=== PATIENT | female | born 1960 | race Native Hawaiian/Other Pacific Islander ===

== ENCOUNTER 2016-08-26 23:45 | Inpatient (IN) | payer OTHER ==
[~2016-08-26] VITALS: Ht 167.6 cm; Wt 127.0 kg
[2016-08-27] VITALS (79 sets, daily range): BP systolic 15–122; BP diastolic 26–81; TEMP 96.2–100; Ht 167.6 cm; Wt 127.0 kg
[2016-08-27 00:40] LABS: PLATELET COUNT 260 K/uL (152-353)
[2016-08-27] MEDS ORDERED: HYDR25TA60 PO ×2 (02:22→12:21)
[2016-08-27] MEDS ORDERED: LISI20TA11 PO (02:23)
[2016-08-27] MEDS ORDERED: LYRICA200 MG PO (02:23)
[2016-08-27] MEDS ORDERED: PRAVACHOL20 MG PO ×2 (02:24→12:26)
[2016-08-27] MEDS ORDERED: LANSOPRAZOLE30 MG PO (02:25)
[2016-08-27] MEDS ORDERED: PROMETHAZINE HC50 MG PO (02:25)
[2016-08-27] MEDS ORDERED: DULOXETINE HCL60 MG PO (02:26)
[2016-08-27] MEDS ORDERED: METF100038 PO (02:27)
[2016-08-27] MEDS ORDERED: ALEN70TA19 PO (02:28)
[2016-08-27] MEDS ORDERED: OMEGA 31000 MG PO (02:29)
[2016-08-27] MEDS ORDERED: INSUINJP SC (02:47)
[2016-08-27 06:29] LABS: PLATELET COUNT 245 K/uL (152-353)
[2016-08-27 06:53] LABS: POTASSIUM 5.7 mmol/L (3.6-5.2)
--- NOTE | 2016-08-27 07:00 | NUR ---
REPORT FROM PM STAFF.PT RESTING IN LOW FOWLERS WITH EYES CLOSED. MUMBLES WHEN TOUCHED OR NAME IS CALLED.
--- NOTE | 2016-08-27 08:03 | NUR ---
08/27/16 AT 0335PT'S CLOSE FRIEND ANTHONY IS AT BEDSIDE, SOME MEDICAL HISTORY RECEIVED FROM IRIS. PT'S CELL PHONE, WALLET, GOWN, COUCH COVER, AND HEATING PAD GIVEN TO ANTHONY TO TAKE BACK TO PT'S HOUSE. ANTHONY IS THE FRIEND THAT CALLED EMS TO PT'S HOUSE PRIOR TO ARRIVING IN ER.
--- NOTE | 2016-08-27 10:05 | NUR ---
PT'S FRIEND IN TO SEE HER. PT ASLEEO BUT WAKES UP & TALKS WITH FRIEND. ORIENTED TO FRIEND. MORE ALERT & ORIENTED AFTER TALKING FOR A FEW MINUTES.
--- NOTE | 2016-08-27 10:25 | NUR ---
LABS DRAWN WITHOUT DIFFICULTY & TO LAB. ABG RESULTS TO DR MYERS PER SANDHYA CASTAÑEDA LIQUOR DEPARTMENT MANAGER.
--- NOTE | 2016-08-27 12:05 | NUR ---
ATTEMPTED TO DECREASE DOPAMINE DRIP,DECREASED TO 8MCG/KG/MIN.
--- NOTE | 2016-08-27 12:15 | NUR ---
BP DOWN TO 83/60.DOPAMINE DRIP INCREASED TO 10MCG/KG/MIN.
[2016-08-27] MEDS ORDERED: DIAZEPAM10 M2 PO (12:18)
[2016-08-27] MEDS ORDERED: DEXL60CA4 PO (12:29)
--- NOTE | 2016-08-27 12:30 | NUR ---
BP UP TO 101/91.
[2016-08-27] MEDS ORDERED: PERCOCET1 TA3 PO (12:31)
[2016-08-27] MEDS ORDERED: FENT75DI TD (12:32)
[2016-08-27] MEDS ORDERED: NOVOLIN R U-1001 ML IJ (12:40)
--- NOTE | 2016-08-27 12:55 | NUR ---
DR MYERS IN TO SEE PT. CHECKING PT'S L FT WOUND. L FOOT ELEVATED ON PILLOWS.
--- NOTE | 2016-08-27 14:08 | NUR ---
PT C/O BACK PAIN,"10 ON A PAIN SCALE'. MEDICATED WITH MORPHINE 2 MG SIVP.
--- NOTE | 2016-08-27 15:30 | NUR ---
PT AWAKE & C/O 'I NEED TO PEE'. EXPLAINED TO PT THAT SHE HAD A CATHETER& IT WAS DRAINING HER BLADDER.
--- NOTE | 2016-08-27 16:30 | NUR ---
AJ FROM LAB IN TO DRAW BLOOD CULTURES.
--- NOTE | 2016-08-27 16:36 | NUR ---
PT C/O 'I NEED TO PEE',EXPLAINED TO PT THAT SHE HAD A CATHETER & SHOWED HER URINE IN BAG & TUBING. EXPLAINED TO HER THAT WE NEEDED TO KEEP ACCURATE I&O ON HER & THAT A CATHETER WOULD SOMETIMES MAKE YOU FEEL LIKE THAT YOU HAD TO GO. REPORTED TO SEUN ROSA RN/JEREMY MYERS.
--- NOTE | 2016-08-27 17:42 | NUR ---
PT CALLING OUT LOUDLY FOR HELP. CALLIGHT AGAIN EXPLAINED TO PT PER PASQUALE LEE RN. PT ASSISTED TO SIT ON SIDE OF BED. PT SITTING UP FEEDING SELF SUPPER.
--- NOTE | 2016-08-27 18:34 | NUR ---
L G TOE SITE CLEANED WITH NS,NEOSPORIN APPLIED,COVERED WITH 4X4S& ZIA.PT ASSITED BACK TO BED.
--- NOTE | 2016-08-27 18:36 | NUR ---
DR MYERS NOTIFIED OF BS& IV FLUIDS D10 AT 83ML/HR.IV FLUIDS CHANGED TO NS AT 125 ML/HR.
--- NOTE | 2016-08-27 20:04 | NUR ---
OTBS 292 AT THIS TIME. NO COVERAGE GIVEN DUE TO PT'S PREVIOUS CRITICALLY LOW BLOOD SUGARS. WILL CONTINUE TO MONITOR.
[2016-08-28] VITALS (63 sets, daily range): BP systolic 24–165; BP diastolic 26–105; TEMP 97.7–100.1
--- NOTE | 2016-08-28 05:08 | NUR ---
DOPAMINE DRIP TITRATED DOWN TO 5 MCG/KG/MIN AT THIS TIME.
--- NOTE | 2016-08-28 06:15 | NUR ---
UNABLE TO DRAW LABS AT THIS TIME. LAB NOTIFIED.
--- NOTE | 2016-08-28 06:25 | NUR ---
LAB AT BEDSIDE ATTEMPTING LAB DRAW.
--- NOTE | 2016-08-28 07:00 | NUR ---
REPORT FROM PM STAFF. PT RESTING IN LOW FOWLERS,EYES CLOSED, NO C/O PAIN AT THIS TIME.
--- NOTE | 2016-08-28 08:45 | NUR ---
PT FED HERSELF 75% 0F MEAL. ASSISTED TO REPOSITION SELF.DOPAMINE DRIP DECREASED TO 4MCG/KG/MIN.
--- NOTE | 2016-08-28 10:15 | NUR ---
DR ESPITIA INTO SEE PT. LABS REPORTED. NEW ORDERS.
--- NOTE | 2016-08-28 10:20 | NUR ---
PT ASSISTED UP TO BSC,NO BM,LINEN CHANGE & BATH, ASSISTED BACK TO BED. GAIT VERY SLOW & UNSTEADY WITH MUCH FEAR OF FALLING.LAB HERE TO ATTEMPT BLOOD DRAW AGAIN.
[2016-08-28 10:24] LABS: PLATELET COUNT 127 K/uL (152-353)
--- NOTE | 2016-08-28 10:24 | NUR ---
PT C/O NAUSEA,RQUESTED 'MY PHENERGAN'. MEDICATED PER DR'S ORDER.
[2016-08-28 10:45] LABS: POTASSIUM 6.8 mmol/L (3.6-5.2)
--- NOTE | 2016-08-28 12:00 | NUR ---
PT TO CT VIA BED PER RAD STAFF,ESCORTED PER BIB HERNANDEZ RN.
--- NOTE | 2016-08-28 12:20 | NUR ---
PT FROM CT VIA BED STABLE. DOPAMINE DRIP DECREASED TO 2.5 MCG/KG/MIN.
--- NOTE | 2016-08-28 13:33 | NUR ---
PT ASSISTED TO LAY BACK DOWN IN BED. FAMILY ATBS.
--- NOTE | 2016-08-28 14:30 | NUR ---
DOPAMINE DRIP STOPPED. PT RESTING.
--- NOTE | 2016-08-28 15:16 | NUR ---
PT RESTING ON R SIDE WITH HOB UP. NO C/O.
--- NOTE | 2016-08-28 17:45 | NUR ---
PT SITTING UP ON SIDE OF BED FEEDING SELF SUPPER.
--- NOTE | 2016-08-28 20:00 | NUR ---
PATIENT IS RESTING IN SEMIFOWLERS POSITION AT THIS TIME. PATIENT DOES C/O PAIN TO HER LOWER BACK, RATES PAIN 10 ON PAIN SCALE 0-10, DESCRIBES PAIN CHRONIC INTERMITTENT PAIN THAT IS SHARP AND ACHING. PATIENT IS AOX3. SHIFT ASSESSMENT COMPLETED AT THIS TIME. IV NOTED TO THE 22G TO THE LEFT FOREARM INFUSING NS AT 125 ML/HR WITH NO S/S OF INFILTRATION NOTED. FALL PRECAUTIONS IN PLACE PER PROTOCOL. WILL CONTINUE TO MONITOR NEEDED.
--- NOTE | 2016-08-28 20:30 | NUR ---
PATIENT ASSISTED TO THE BEDSIDE COMMODE. MODERATE ASSISTANCE NEEDED. PATIENT HAD A VERY LARGE FORMED BOWEL MOVEMENT. PATIENT ASSISTED BACK TO BED. PATIENT HAS DIFFICULTY WITH REPOSITIONING IN BED. WILL CONTINUE TO MONITOR NEEDED.
--- NOTE | 2016-08-28 21:39 | NUR ---
PATIENT COMPLAINS OF PAIN AT THIS TIME. RATES PAIN 10 ON PAIN SCALE 0-10. STATES PAIN IS CHRONIC AND INTERMITTENT, DESCRIBES PAIN SHARP. PRN MEDICATION GIVEN AT THIS TIME ORDERED. WILL REASSESS FOR PAIN RELIEF.
--- NOTE | 2016-08-28 22:39 | NUR ---
PATIENT IS RESTING IN BED STATES PAIN IS STILL PRESENT MEDICATION HELPS FOR A LITTLE AND THEN PAIN RETURNS. COMFORT MEASURES PROVIDED AT THIS TIME.
[2016-08-29] VITALS (9 sets, daily range): BP systolic 100–142; BP diastolic 38–66; TEMP 98.2–99.5
--- NOTE | 2016-08-29 01:15 | NUR ---
CALLED ER DR.LU HOUSER AND EXPLAINED TO HIM PATIENT IS CRYING AND IS ANXIOUS. DIAZEPAM 10 MG X1 GIVEN PO ORDERED. WILL REASSESS FOR DECREASED RESTLESSNESS.
--- NOTE | 2016-08-29 02:00 | NUR ---
POST MEDICATION DIAZEPAM- PATIENT IS RESTING WITH EYES CLOSED AT THIS TIME.
--- NOTE | 2016-08-29 03:15 | NUR ---
PATIENT COMPLAINS OF PAIN RATES PAIN 10 ON PAIN SCALE 0-10. DESCRIBES PAIN INTOLERABLE AND SHARP IN HER BACK, PAIN IS INTERMITTENT. PRN MEDICATION GIVEN AT THIS TIME.
--- NOTE | 2016-08-29 06:29 | NUR ---
DRESSING TO LEFT FOOT NOT INTACT. WOUND CLEANSED WITH NS AND ANTIBIOTIC CREAM APPLIED. 4X4 DRESSING PLACED AND SECURED WITH TAPE.
--- NOTE | 2016-08-29 07:30 | NUR ---
AM ASSESSMENT DONE.
[2016-08-29 07:42] LABS: PLATELET COUNT 175 K/uL (152-353)
[2016-08-29 08:07] LABS: POTASSIUM 4.5 mmol/L (3.6-5.2); SODIUM 139 mmol/L (136-145)
--- NOTE | 2016-08-29 09:14 | NUR ---
PT SITTING ON SIDE OF BED EATING BREAKFAST.
--- NOTE | 2016-08-29 10:11 | NUR ---
PT C/O OF SHARP PAINS IN HER BLADDER. DR. ESPITIA NOTIFIED.
--- NOTE | 2016-08-29 10:30 | NUR ---
NOLASCO D/C'D WITH TIP INTACT. 2000ML URINE OUTPUT. PT NAHUN WELL. PT UP TO BSC. PT VOIDED 100ML OF URINE.
--- NOTE | 2016-08-29 12:00 | NUR ---
PT RESTING QUIETLY WITH EYES CLOSED. WILL CONTINUE TO MONITOR.
--- NOTE | 2016-08-29 13:28 | NUR ---
PT UP TO BSC. VOIDED 400ML.
--- NOTE | 2016-08-29 14:04 | NUR ---
DR. ESPITIA HERE TO SEE PT.
--- NOTE | 2016-08-29 16:17 | NUR ---
RECEIVED ORDER TO TRANSFER PT TO MED SURG. PT WILL GO TO ROOM 1109.
--- NOTE | 2016-08-29 16:54 | NUR ---
PT UP TO BSC.
--- NOTE | 2016-08-29 17:52 | NUR ---
PT TRANSFERRED TO ROOM 1109 VIA WC IN STABLE COND. ORIENTED PT TO ROOM SURROUNDINGS.
--- NOTE | 2016-08-29 18:01 | NUR ---
1801 PT TRANSFERED FROM PCU TO ROOM 1109 VIA BED. FAMILY WITH PT. PT ALERT AND ORIENTED. NO DISTRESS NOTED. [facility]
--- NOTE | 2016-08-29 18:03 | NUR ---
GAVE REPORT TO CHI HERNANDEZ RN.
[2016-08-30] VITALS: BP 150/66; TEMP 99.8
[2016-08-30 04:00] VITALS: BP 125/55; TEMP 98.9
[2016-08-30 05:29] LABS: PLATELET COUNT 198 K/uL (152-353)
[2016-08-30 05:45] LABS: POTASSIUM 4.2 mmol/L (3.6-5.2); SODIUM 140 mmol/L (136-145)
[2016-08-30 08:00] VITALS: BP 124/62; TEMP 97.8
[2016-08-30 12:00] VITALS: BP 121/57; TEMP 98.4
--- NOTE | 2016-08-30 15:58 | NUR ---
1600 PT LEFT VIA WC WITH FAMILY. NO DISTRESS NOTED HOME MEDS RETURNED WITH PT ON TIME OF DISCHARGE
== END 2016-08-30 15:56 | disposition home or self-care (01) | DRG 638 ==
LOC: ED 23:45 → ICU 08-27 02:15 → MED/SURG 08-29 17:50
DX: E11.649 Type 2 diabetes mellitus with hypoglycemia without coma (principal); E87.2 Acidosis; Z79.4 Long term (current) use of insulin; I95.89 Other hypotension; F41.8 Other specified anxiety disorders; K21.9 Gastro-esophageal reflux disease without esophagitis; E11.42 Type 2 diabetes mellitus with diabetic polyneuropathy; I12.9 Hypertensive chronic kidney disease with stage 1 through stage 4 chronic kidney disease, or unspecified chronic kidney disease; N18.3 Chronic kidney disease, stage 3 (moderate); M79.7 Fibromyalgia; J44.9 Chronic obstructive pulmonary disease, unspecified; M32.8 Other forms of systemic lupus erythematosus; Z85.810 Personal history of malignant neoplasm of tongue; E11.621 Type 2 diabetes mellitus with foot ulcer; L97.529 Non-pressure chronic ulcer of other part of left foot with unspecified severity
CPT/HCPCS: 36415; 36600; 51702; 80053; 80307; 80320; 80329; 81000; 82140; 82805; 82947; 82948; 82962; 83036; 83735; 85027; 96360; 96361; 96365; 96366; 96372; 96374; 96375; 99285; G0479; J1265; J2270; J3475; J3490; J7060

== ENCOUNTER 2016-09-29 10:13 | Outpatient (CLI) | payer OTHER ==
[~2016-09-29 10:13] MED LIST: ALEN70TA19 PO; DEXL60CA4 PO; DIAZEPAM10 M2 PO; DULOXETINE HCL60 MG PO; FENT75DI TD; HYDR25TA60 PO; INSUINJP SC; LANSOPRAZOLE30 MG PO; LISI20TA11 PO; LYRICA200 MG PO; METF100038 PO; NOVOLIN R U-1001 ML IJ; OMEGA 31000 MG PO; PERCOCET1 TA3 PO; PRAVACHOL20 MG PO; PROMETHAZINE HC50 MG PO
[2016-09-29 10:49] LABS: PLATELET COUNT 204 K/uL (152-353)
[2016-09-29 11:49] LABS: POTASSIUM 4.6 mmol/L (3.6-5.2); SODIUM 135 mmol/L (136-145)
== END 2016-09-29 11:15 | disposition home or self-care (01) ==
LOC: LABW 10:13
PROVIDERS: Internal Medicine
DX: E11.9 Type 2 diabetes mellitus without complications (principal); I10 Essential (primary) hypertension; M81.8 Other osteoporosis without current pathological fracture
CPT/HCPCS: 36415; 80053; 80061; 81000; 82043; 82306; 82570; 83036; 84443; 85027; 85651; 86039

== ENCOUNTER 2016-11-01 16:59 | Outpatient (CLI) | payer OTHER ==
[2016-11-01] MEDS ORDERED: PREVACID30 M1 OR (18:18)
[2016-11-01] MEDS ORDERED: TRAZ50TA36 PO (18:20)
== END 2016-11-01 17:05 | disposition short-term general hospital (02) ==
LOC: AMB 16:59
DX: R41.82 Altered mental status, unspecified (principal); R56.9 Unspecified convulsions
CPT/HCPCS: A0425; A0427

== ENCOUNTER 2016-11-01 17:05 | Emergency (ER) | payer OTHER ==
[~2016-11-01] VITALS: Ht 167.6 cm; Wt 114.8 kg
[2016-11-01 17:37] LABS: PLATELET COUNT 328 K/uL (152-353)
[2016-11-01 17:40] LABS: POTASSIUM 3.7 mmol/L (3.6-5.2); SODIUM 135 mmol/L (136-145)
[2016-11-01] MEDS ORDERED: PREVACID30 M1 OR (18:18)
[2016-11-01] MEDS ORDERED: TRAZ50TA36 PO (18:20)
[2016-11-01 19:13] VITALS: TEMP 98.1
[2016-11-01 19:43] VITALS: BP 133/69
== END 2016-11-01 20:44 | disposition short-term general hospital (02) ==
LOC: ED 17:05
PROVIDERS: Family Medicine
DX: R56.9 Unspecified convulsions (principal); N39.0 Urinary tract infection, site not specified; A41.9 Sepsis, unspecified organism; I51.7 Cardiomegaly; L84 Corns and callosities; L03.116 Cellulitis of left lower limb; E11.622 Type 2 diabetes mellitus with other skin ulcer; Z79.4 Long term (current) use of insulin; R00.0 Tachycardia, unspecified; I50.9 Heart failure, unspecified
CPT/HCPCS: 36600; 80053; 80307; 81000; 82550; 82553; 82805; 83605; 83880; 84484; 85027; 87040; 87077; 87086; 87088; 87186; 93005; 96365; 96375; 99285; G0479; J2405; J3360; J3370

== ENCOUNTER 2017-05-03 15:13 | Outpatient (CLI) | payer OTHER ==
[~2017-05-03 15:13] MED LIST changes: +PREVACID30 M1 OR; +TRAZ50TA36 PO
[2017-05-03 16:56] LABS: POTASSIUM 4.8 mmol/L (3.6-5.2)
== END 2017-05-03 21:32 | disposition home or self-care (01) ==
LOC: LAB 15:13
PROVIDERS: Internal Medicine
DX: E11.43 Type 2 diabetes mellitus with diabetic autonomic (poly)neuropathy (principal); I10 Essential (primary) hypertension; E78.4 Other hyperlipidemia; E55.9 Vitamin D deficiency, unspecified
CPT/HCPCS: 80053; 80061; 82306; 83036

== ENCOUNTER 2017-05-23 17:50 | Outpatient (CLI) | payer OTHER ==
[2017-05-23 18:29] LABS: PLATELET COUNT 204 K/uL (152-353)
== END 2017-05-23 19:39 | disposition home or self-care (01) ==
LOC: LAB 17:50
PROVIDERS: Internal Medicine Gastroenterology
DX: K62.5 Hemorrhage of anus and rectum (principal)
CPT/HCPCS: 82607; 82728; 82746; 83540; 83550; 85027

== ENCOUNTER 2017-06-11 09:43 | Outpatient (CLI) | payer OTHER ==
[2017-06-11 10:01] LABS: PLATELET COUNT 178 K/uL (152-353)
[2017-06-11 10:09] LABS: POTASSIUM 4.9 mmol/L (3.6-5.2)
== END 2017-06-11 20:00 | disposition home or self-care (01) ==
LOC: LAB 09:43
PROVIDERS: Internal Medicine
DX: R23.3 Spontaneous ecchymoses (principal)
CPT/HCPCS: 80053; 81000; 85027; 85651

== ENCOUNTER 2017-06-14 09:38 | Outpatient (CLI) | payer OTHER | END 2017-06-14 22:25 | disposition home or self-care (01) | LOC: LAB 09:38 | DX: E11.9 Type 2 diabetes mellitus without complications (principal) | CPT/HCPCS: 83036 ==

== ENCOUNTER 2017-07-10 10:14 | Outpatient (CLI) | payer OTHER ==
[2017-07-10 12:53] LABS: POTASSIUM 3.8 mmol/L (3.6-5.2)
== END 2017-07-10 21:56 | disposition home or self-care (01) ==
LOC: LAB 10:14
PROVIDERS: Internal Medicine Nephrology
DX: N17.8 Other acute kidney failure (principal)
CPT/HCPCS: 80048; 83735

== ENCOUNTER 2017-09-03 15:18 | Outpatient (CLI) | payer OTHER | END 2017-09-03 19:15 | disposition home or self-care (01) | LOC: LAB 15:18 | DX: N39.0 Urinary tract infection, site not specified (principal) | CPT/HCPCS: 81000; 87077; 87086; 87088; 87185; 87186 ==

== ENCOUNTER 2017-09-10 11:44 | Outpatient (CLI) | payer OTHER ==
[2017-09-10 12:25] LABS: PLATELET COUNT 281 K/uL (152-353)
== END 2017-09-10 23:47 | disposition home or self-care (01) ==
LOC: LABW 11:44
PROVIDERS: Internal Medicine
DX: M79.662 Pain in left lower leg (principal); Z01.818 Encounter for other preprocedural examination
CPT/HCPCS: 36415; 80053; 85027

== ENCOUNTER 2018-01-24 13:10 | Inpatient (IN) | payer OTHER ==
[~2018-01-24] VITALS: Ht 167.6 cm; Wt 129.0 kg
[2018-01-24 13:16] VITALS: BP 139/62; TEMP 99.5
[2018-01-24 14:25] VITALS: BP 117/75; TEMP 102.8
[2018-01-24 15:00] LABS: PLATELET COUNT 172 K/uL (152-353)
[2018-01-24 15:04] LABS: POTASSIUM 4.6 mmol/L (3.6-5.2)
[2018-01-24 16:05] VITALS: BP 128/78; TEMP 98.8
[2018-01-24 20:00] VITALS: BP 120/61; TEMP 101.2
[2018-01-25] VITALS: BP 131/55; TEMP 102.2
[2018-01-25 02:14] VITALS: BP 109/58; TEMP 99.3; Ht 167.6 cm; Wt 129.0 kg
[2018-01-25 05:28] LABS: PLATELET COUNT 139 K/uL (152-353)
[2018-01-25 06:02] LABS: POTASSIUM 4.4 mmol/L (3.6-5.2)
[2018-01-25 08:05] VITALS: BP 104/55; TEMP 102.1
[2018-01-25 12:20] VITALS: BP 113/42; TEMP 99.5
[2018-01-25 16:00] VITALS: BP 134/63; TEMP 100.1
[2018-01-25 16:47] LABS: POTASSIUM 4.4 mmol/L (3.6-5.2)
[2018-01-25 20:00] VITALS: BP 130/48; TEMP 100.3
[2018-01-26] VITALS (7 sets, daily range): BP systolic 95–145; BP diastolic 47–60; TEMP 98.6–102.4
[2018-01-26 05:59] LABS: PLATELET COUNT 104 K/uL (152-353)
[2018-01-26 06:45] LABS: POTASSIUM 4.4 mmol/L (3.6-5.2)
[2018-01-27] VITALS: BP 96/42; TEMP 99.1
[2018-01-27 04:00] VITALS: BP 95/40; TEMP 99.4
[2018-01-27 08:00] VITALS: BP 125/52; TEMP 97.9
[2018-01-27 08:44] LABS: PLATELET COUNT 85 K/uL (152-353)
[2018-01-27 08:55] LABS: POTASSIUM 4.4 mmol/L (3.6-5.2)
[2018-01-27 12:00] VITALS: BP 113/40; TEMP 98
[2018-01-27 16:00] VITALS: BP 106/70; TEMP 98.2
[2018-01-27 20:00] VITALS: BP 123/40; TEMP 98.9
[2018-01-28] VITALS (7 sets, daily range): BP systolic 94–127; BP diastolic 40–61; TEMP 97.6–98.9
[2018-01-28 06:19] LABS: POTASSIUM 4.1 mmol/L (3.6-5.2)
[2018-01-28 06:30] LABS: PLATELET COUNT 67 K/uL (152-353)
[2018-01-28 15:48] LABS: POTASSIUM 4.1 mmol/L (3.6-5.2)
== END 2018-01-28 22:50 | disposition short-term general hospital (02) | DRG 557 ==
LOC: ED 13:10 → MED/SURG 16:20
PROVIDERS: Family Medicine; ADMIT Emergency Medicine
PROC: 05HM33Z Insertion of Infusion Device into Right Internal Jugular Vein, Percutaneous Approach (ICD-10-PCS; 2018-01-25)
PROC: B543ZZA Ultrasonography of Right Jugular Veins, Guidance (ICD-10-PCS; 2018-01-25)
PROC: 02HV33Z Insertion of Infusion Device into Superior Vena Cava, Percutaneous Approach (ICD-10-PCS; principal; 2018-01-27)
DX: M62.82 Rhabdomyolysis (principal); I26.99 Other pulmonary embolism without acute cor pulmonale; N17.8 Other acute kidney failure; N18.4 Chronic kidney disease, stage 4 (severe); E87.1 Hypo-osmolality and hyponatremia; N39.0 Urinary tract infection, site not specified; E87.2 Acidosis; E11.22 Type 2 diabetes mellitus with diabetic chronic kidney disease; I12.9 Hypertensive chronic kidney disease with stage 1 through stage 4 chronic kidney disease, or unspecified chronic kidney disease; F41.8 Other specified anxiety disorders; R47.81 Slurred speech; M32.9 Systemic lupus erythematosus, unspecified; M79.7 Fibromyalgia; I87.8 Other specified disorders of veins
CPT/HCPCS: 36415; 36571; 36600; 80053; 81000; 82550; 82553; 82570; 82805; 83605; 83935; 84300; 84484; 85027; 85379; 85610; 85730; 87077; 87086; 87088; 87186; 93005; 94760; 99283; C1751; C1768; J0696; J1450; J1644; J1650; J2060; J2270; J3490